=== PATIENT | male | born 1995 | race African-American/Black ===

== ENCOUNTER 2018-01-02 18:07 | Emergency (ER) | payer OTHER ==
[~2018-01-02] VITALS: Ht 180.3 cm; Wt 81.6 kg
[2018-01-02] MEDS ORDERED: LORazepam 1mg tab ORAL ONE (18:15)
[2018-01-02 19:25] VITALS: BP 140/75
--- NOTE | 2018-01-02 21:06 | Emergency Room Report ---
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 Denies regular drug use. Patient denies pain he reports he wants his head on a wall when he was trying to walk straight he denies loss of consciousness he denies dizziness. He denies other substance use. Denies significant past medical or psychiatric history. Denies CP, Palpitations, LOC, AMS, dizziness, Changes in Vision, Sensation, paresthesias, or a sudden severe headache. Allergies: Coded Allergies: CEFIXIME (Verified Allergy, Unknown, 01/02/18) Patient History Past Medical History: see triage record Past Surgical History: none Social History: Reports: drug use - THC- smoking Reviewed Nursing Documentation: PMH: Agreed, PSxH: Agreed Nursing Documentation-PMH Hx Asthma: Yes Review of Systems All Other Systems: negative except mentioned in HPI Physical Exam Vital Signs Date Time Temp Pulse Resp B/P (MAP) Pulse Ox O2 Delivery O2 Flow Rate FiO2 01/02/18 18:04 97.0 112 16 159/79 100 Room Air 97.0 Sp02 EP Interpretation: reviewed, normal General Appearance: no apparent distress, alert, GCS 15, non-toxic Head: normocephalic, atraumatic Eyes: bilateral eye normal inspection, bilateral eye PERRL ENT: hearing grossly normal, normal voice Neck: full range of motion Respiratory: lungs clear, normal breath sounds, no respiratory distress, no wheezing, speaking full sentences Cardiovascular #1: regular rate, rhythm, normal capillary refill Gastrointestinal: non tender, soft Rectal: deferred Musculoskeletal: back normal, gait/station normal, normal range of motion, non- tender Neurologic: alert, oriented x3, responsive, motor strength/tone normal, sensory intact, speech normal, grossly normal Psychiatric: judgement/insight normal, anxious Skin: normal color, no rash, warm/dry, well hydrated Medical Decision Making PA Attestation Dr. maddox is my supervising Physician whom patient management has been discussed with. 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 Denies regular drug use. Patient denies pain he reports he wants his head on a wall when he was trying to walk straight he denies loss of consciousness he denies dizziness. He denies other substance use. Denies significant past medical or psychiatric history. Denies CP, Palpitations, LOC, AMS, dizziness, Changes in Vision, Sensation, paresthesias, or a sudden severe headache. Ddx considered but are not limited to ETOH, Trauma, Syncope, dementia, OD, substance abuse Vital signs: are WNL, pt. is afebrile H&PE are most consistent with acute drug intoxication ORDERS: ED INTERVENTIONS: - 1mg Ativan PO -1 Liter NS IV -Observance while he detoxifies. -Pt. was allowed to sleep/rest. -PT. remained awake and alert x 3 - pt. reports his symptoms have improved after administration of ativan upon re- evaluation. --I do not identify an emergent condition at this time. With current presentation, pt. is stable for close outpatient follow up and conservative treatment. D/w pt. to return promptly to ED with worsening or new symptoms.- Pt. (and or responsible alliance party) verbalizes' understanding and agreement with proposed treatment plan.proposed treatment plan. DISCHARGE: At this time pt. is stable for d/c to home. Will provide printed patient care instructions, and any necessary prescriptions. Care plan and follow up instructions have been discussed with the patient prior to discharge. Last Vital Signs Date Time Temp Pulse Resp B/P (MAP) Pulse Ox O2 Delivery O2 Flow Rate FiO2 01/02/18 19:25 97.0 90 16 140/75 100 Room Air 97.0 Disposition: HOME, SELF-CARE Condition: Stable Scripts No Active Prescriptions or Reported Meds Referrals: NOT CHOSEN IPA/MD,REFERRING (PCP) Patient Instructions: Medical Screening Exam, Substance Use Disorder Additional Instructions: DISCONTINUE USE OF RECREATIONAL SUBSTANCES. Take any previously prescribed medications as directed. Follow up with a Primary Care Provider in 3-5 days, even if your symptoms have resolved. --Please review list of primary care clinics, if you do not already have a primary care provider Return sooner to ED if new symptoms occur, or current symptoms become worse. - Please note that this Emergency Department Report was dictated using [employer] snatcher technology software, occasionally this can lead to erroneous entry secondary to interpretation by the dictation equipment. Francy Cai Jan 02, 2018 21:06
[2018-01-02 22:31] VITALS: BP 141/61
[2018-01-02 22:35] VITALS: BP 141/61
== END 2018-01-02 22:35 | disposition home or self-care (01) ==
LOC: EDBD 18:07 → EMR 18:30
DX: T40.7X1A Poisoning by cannabis (derivatives), accidental (unintentional), initial encounter (principal); J45.909 Unspecified asthma, uncomplicated
CPT/HCPCS: 96360; 99284